=== PATIENT | male | born 1965 | race Caucasian/White ===

== ENCOUNTER → 2024-02-10 | Outpatient (CLI) | payer BC ==
--- NOTE | 2024-02-10 22:38 | MR ---
EXAMINATION TYPE: MR shoulder LT wo con DATE OF EXAM: 02/10/2024 6:01 PM COMPARISON: Outside left shoulder x-ray February 05, 2024 CLINICAL INDICATION: Male, 58 years old with history of M25.512 L SHOULDER PAIN, Left shoulder pain s estefania 01-30-24 due to fall and dislocating it TECHNIQUE: Multiplanar, multisequence imaging of the left shoulder is performed without contrast. FINDINGS: Rotator Cuff: Some increased signal in the infraspinatus tendon and muscle bulk. More prominent incre ased signal in the supraspinatus tendon with full-thickness retracted tear seen best coronal image 14 . Heterogeneous subscapularis tendon with surrounding fluid. Rotator cuff muscle bulk is preserved. Acromioclavicular Joint: Mild to moderate narrowing and spurring along with capsular hypertrophy. Glenohumeral Joint: Moderate size joint effusion. Narrowing is seen. No significant spurring. Labrum: The labrum appears grossly intact given limitation of non-arthrogram study. Biceps Tendon: The long head of biceps is dislocated anteromedially from the bicipital groove. Bone marrow signal: Increased T2 signal involving the inferior osseous glenoid coronal image 15 most prominent anteriorly in the lateral aspect of the humeral head. No bony Hill-Sachs deformity. Other: Ill-defined edema surrounds the proximal humerus. IMPRESSION: 1. Full-thickness retracted tear of the distal supraspinatus tendon. 2. Some tendinosis of infraspinatus and subscapularis tendons. 3. Subluxation or dislocation of the long head of biceps tendon. 4. Osseous contusion pattern consistent with anterior glenohumeral joint dislocation involving anteri or-inferior glenoid and lateral humeral head. 5. Moderate-sized joint effusion. [facility], , 02/10/2024 10:35 PM
== END | disposition home or self-care (01) ==
LOC: RADMRIMAIN 16:58
PROVIDERS: ATTEND Orthopaedic Surgery
DX: S46.012A Strain of muscle(s) and tendon(s) of the rotator cuff of left shoulder, initial encounter (principal); S43.005A Unspecified dislocation of left shoulder joint, initial encounter; M67.814 Other specified disorders of tendon, left shoulder; W19.XXXA Unspecified fall, initial encounter

== ENCOUNTER → 2024-03-11 | Outpatient (CLI) | payer BC ==
[2024-03-11 14:59] LABS: BUN/Creat Ratio 11.82 Ratio (12.00-20.00); Calcium 9.6 mg/dL (8.7-10.3); Carbon Dioxide 27.3 mmol/L (21.6-31.8); Chloride 104 mmol/L (96-109); Glucose 95 mg/dL (70-110); Potassium 4.3 mmol/L (3.5-5.5); Sodium 142 mmol/L (135-145)
[2024-03-11 15:00] LABS: Basophils # (A) 0.03 X 10*3/uL (0.00-0.10); Basophils % (A) 0.5 %; Eosinophils # (A) 0.17 X 10*3/uL (0.04-0.35); HGB 15.6 g/dL (13.0-17.0); Lymphocytes # (A) 1.55 X 10*3/uL (0.90-5.00); Lymphocytes % (A) 27.7 %; MCH 29.2 pg (27.0-32.0); MCHC 33.9 g/dL (32.0-37.0); Monocytes # (A) 0.44 X 10*3/uL (0.20-1.00); Monocytes % (A) 7.9 %; NRBC Per 100 WBC 0 X 10*3/uL (0.00-0.01); Neutrophils # (A) 3.39 X 10*3/uL (1.80-7.70); Neutrophils % (A) 60.7 %; Platelet Count 277 X 10*3/uL (140-440); RBC 5.35 X 10*6/uL (4.40-5.60); RDW 12.3 % (11.5-14.5); WBC 5.59 X 10*3/uL (4.50-10.00)
== END | disposition home or self-care (01) ==
LOC: LABPAT 11:12
PROVIDERS: ATTEND Orthopaedic Surgery
DX: Z01.818 Encounter for other preprocedural examination (principal); M75.42 Impingement syndrome of left shoulder
CPT/HCPCS: 36415; 80048; 85025; 93005

== ENCOUNTER 2024-04-02 05:50 | Day surgery (SDC) | payer BC ==
--- NOTE | 2024-04-01 11:19 | P.HPOR ---
History of Present Illness H&P Date: 04/01/24 Chief Complaint: Left shoulder pain and weakness Patient is a 59-year-old [id number] male who presents with left shoulder pain and weakness after an injury February 02, 2024. He slammed his shoulder into a wall and sustained a dislocation. He was able to relocate that himself. He notes anterior pain and weakness ever since. He denies previous problems. Initially he was treated in a sling. He takes pain medications as needed. Review of Systems Per HPI Past Medical History Past Medical History: Sleep Apnea/CPAP/BIPAP Additional Past Medical History / Comment(s): fell & dislocated Lt. shoulder 01/30/24, no sleep apnea since jaw surgery History of Any Multi-Drug Resistant Organisms: None Reported Additional Past Surgical History / Comment(s): Lt. collarbone lymph nodes removed, corrective jaw surgery 2018, colonoscopy Past Anesthesia/Blood Transfusion Reactions: No Reported Reaction Smoking Status: Never smoker - Past Family History Father Family Medical History: AFIB, Diabetes Mellitus, Sleep Apnea/CPAP/BIPAP Medications and Allergies Home Medications Medication Instructions Recorded Confirmed Type Acetaminophen Tab [Tylenol Tab] 1,000 mg PO Q6HR PRN 03/30/24 03/30/24 History Cholecalciferol [Vitamin D3 (25 25 mcg PO DAILY 03/30/24 03/30/24 History Mcg = 1000 Iu)] Ginkgo Biloba [place] Extract [Ginkgo 1 tab PO DAILY 03/30/24 03/30/24 History Biloba] L.acidoph,Paracasei, B.lactis 1 tab PO DAILY 03/30/24 03/30/24 History [Probiotic] Multivitamins, Thera [Multivitamin 1 tab PO DAILY 03/30/24 03/30/24 History (formulary)] [place]-3/Dha/Epa/Fish Oil [Fish Oil 1 tab PO DAILY 03/30/24 03/30/24 History 1,000 mg Softgel] Tumeric 1 tab PO DAILY 03/30/24 03/30/24 History Zinc Gluconate [Zinc] 50 mg PO DAILY 03/30/24 03/30/24 History tadalafiL [Cialis] 20 mg PO DAILY PRN 03/30/24 03/30/24 History Allergies Allergy/AdvReac Type Severity Reaction Status Date / Time No Known Allergies Allergy Verified 03/30/24 13:07 Physical Examination - Shoulder left Appearance: effusion Tenderness with palpation: anterior, bicipital groove Pain: with abduction, with forward flexion ROM: forward flexion: 60 degrees ROM: internal rotation: lower lumbar ROM: external rotation: 30 degrees Strength: abduction: 4/5 Strength: external rotation: 4/5 Tests: internal impingement tests: positive, external impingment tests: positive, anterior instability tests: positive Apprehension: anterior apprehension present: yes Results The patient is a well-developed well-nourished male approximately 5 foot 10, 194 pounds of mesomorphic habitus. HEENT exam is nonfocal, neck is supple. He is tender about the anterior left glenohumeral joint. Passively I am able to forward elevate him 80 degrees. Apprehension test with relocation test are positive. Motor strength 4+/5 for external rotation 4-/5 for abduction. His distal neurovascular appears intact in the left upper extremity. He is nontender about the left elbow and wrist. - Diagnostic results Shoulder MRI: image reviewed (MRI of the left shoulder shows evidence of a full- thickness tear involve the supraspinatus along with subluxation of the biceps and anterior glenoid and lateral humeral head edema. Impression left anterior glenohumeral dislocation with rotator cuff tear/biceps subluxationdislocation) Assessment and Plan Assessment: Left anterior glenohumeral dislocation/rotator cuff tear/biceps subluxationdislocation Plan: I talked to the patient at length regarding his condition along with treatment options. At this point he has significant pain and weakness after this acute injury. After a thorough discussion he opts to proceed with surgery. We will plan to proceed with left shoulder arthroscopy with probable subacromial decompression/rotator cuff repair/possible biceps tenotomy versus tenodesis/and possible labral repair. We would likely perform that as an outpatient procedure. Risks and benefits were discussed at length in layman's terms.
[2024-04-02] MEDS ORDERED: SCOPOLAMINE 1 MG/72 HR PATCH TRANSDERM ONE (06:14)
[2024-04-02] MEDS: LACTATED RINGERS 1,000 ML IV SCH (06:35)
[2024-04-02] MEDS: LIDOCAINE 1% (10MG/ML) FOR IV START INTRADERMA STA (06:35)
[2024-04-02] MEDS: IV FLUID CONTINUATION 1,000 ML IV ONE (06:35)
[2024-04-02 06:38] VITALS: TEMP 97
[2024-04-02] MEDS: ONDANSETRON 4 MG/2 ML VIAL IVP ONE (06:47)
[2024-04-02] MEDS: DEXAMETHASONE SOD PHOSPHATE 4 MG/ML 1 ML VIAL IV ONE (06:47)
[2024-04-02] MEDS: MIDAZOLAM 2 MG/2 ML VIAL IV PRN (07:00)
[2024-04-02] MEDS ORDERED: HYDROmorphone 0.5 MG/0.5 ML SYRINGE IVP PRN (07:00)
[2024-04-02] MEDS ORDERED: MIDAZOLAM 2 MG/2 ML VIAL ONE (07:25)
[2024-04-02] MEDS ORDERED: DEXAMETHASONE SOD PHOSPHATE 4 MG/ML 1 ML VIAL ONE (07:25)
[2024-04-02] MEDS ORDERED: ePHEDrine 50 MG/ML 1 ML VIAL ONE (07:25)
[2024-04-02] MEDS ORDERED: PHENYLEPHRINE 10 MG/ML VIAL ONE (07:25)
[2024-04-02] MEDS ORDERED: SUCCINYLCHOLINE CHLORIDE 200 MG/10 ML VIAL IV ONE (07:25)
[2024-04-02] MEDS ORDERED: LIDOCAINE 1% INJ 10MG/ML (20 ML MDV) ONE (07:25)
[2024-04-02] MEDS ORDERED: PROPOFOL 10 MG/ML 20 ML VIAL IV ONE (07:25)
[2024-04-02] MEDS ORDERED: ROPIVACAINE 5 MG/ML 30 ML VIAL ONE (07:25)
[2024-04-02] MEDS: EPINEPHrine (PF) 1 ML in SODIUM CHLORIDE 0.9% IRRIGATIO 3,000 ML IRRIGATION ONE ×4 (08:00)
[2024-04-02] MEDS: LACTATED RINGERS 1,000 ML IV ONE (09:12)
--- NOTE | 2024-04-02 09:29 | P.OP ---
Date of Procedure: 04/02/24 Preoperative Diagnosis: Left rotator cuff tear Postoperative Diagnosis: 3 cm rotator cuff tear involving the supraspinatus and infraspinatus Procedure(s) Performed: Left shoulder arthroscopic subacromial decompression/inferior labral debridement/rotator cuff repair Implants: Arthrex 4.75 mm swivel lock anchor x 1, 5.5 mm swivel lock anchor x 3 Anesthesia: ESTELITAA, janeth Surgeon: Adam Nicholson Program Manager #1: Johnny Roberson Estimated Blood Loss (ml): 10 Pathology: none sent Condition: stable Disposition: PACU Indications for Procedure: The patient is a 59-year-old male who presents with left shoulder pain and weakness after a previous injury in which he sustained a dislocation. Clinically and by MRI he was noted to have evidence of an acute rotator cuff tear. A discussion of the risks and benefits of operative intervention versus conservative measures was made with the patient. He opted to proceed with surgery. Operative risks include infection, neurovascular injury, development of blood clots, possible tendon rerupture, possible postoperative stiffness and need for subsequent procedures was discussed. Informed consent was obtained. Operative Findings: As below Description of Procedure: The patient was brought to the operating room, and after induction of general anesthesia was placed in a beachchair position. A preoperative interscalene block was placed for postoperative analgesia. I examined the left shoulder. There was no gross block to passive motion. The left upper extremity was prepped and draped in normal fashion. The bony outlines the acromion, distal clavicle, and coracoid process were outlined with a skin marker. The glenohumeral joint was inflated with 50 mL of saline utilizing a spinal needle from posterior approach. A posterior portal was made through a 5 mm skin incision 1 cm medial and inferior to the posterior lateral border time. A blunt trocar was used to easily into the joint. Diagnostic arthroscopy was performed. An anterior portal was made just lateral to the coracoid process entering the joint above the subscapularis tendon. The subscapularis tendon appeared to be intact. Anterior labrum was intact, however there was a tear involving the inferior labrum and a loose flap that was debrided back to a stable base with a motorized shaver the inferior recess was inspected. The posterior labrum was intact. The long head of the biceps and its anchor appear to be intact. On inspection the rotator cuff, a full-thickness tear involve the supraspinatus and a portion of the infraspinatus was noted with mild retraction. The arthroscope was placed into the subacromial space. A lateral portal was made 2 centimeters inferior to the anterior lateral border of the acromion. The rotator cuff was then mobilized with a traction suture. This was then easily brought back to the greater tuberosity. The soft tissue on the undersurface of the acromion was debrided with a motorized shaver and electrocautery clearly defining the anterior medial and lateral borders as well as the distal clavicle. An anterior inferior acromioplasty was performed with a motorized karen starting anterolateral, then extending this posteriorly, then extending this medially. I converted to a flat acromion and this was verified in the posterior and lateral viewing portals. The greater tuberosity was lightly decorticating with a shaver down to a bleeding bony surface. An accessory superior lateral portals made just off the lateral edge of the acromion for anchor placement. 2 anchors were then placed just off the articular surface with the appropriate starting awl. A 4.75 mm anchor preloaded with #2 fiber tape was placed anteriorly, and a 5.5 mm swivel lock anchor posteriorly. Good purchase was obtained. These fiber tapes were then passed the rotator cuff with a scorpion suture passer. A lateral row was created crisscrossing these tapes. 5.5 mm swivel lock anchors x 2 were placed laterally. Good purchase was obtained. Final arthroscopic view showed adequate compression at the footprint. The arthroscope was then removed. The portals were closed with simple 3-0 nylon sutures. A sterile dressing was roshan lied in addition to an abductor brace. The patient was then awoken from general anesthesia and transferred to recovery room in good condition. Blood loss was estimated at 10 mL. No complications were incurred. Sponge and needle counts were correct in the case. Johnny VALENTINE assisted and the major components of the case to include arm positioning, anchor placement, and rotator cuff repair.
--- NOTE | 2024-04-02 09:29 | P.ANPRN ---
Procedure Note - Anesthesia - Nerve Block Performed Left Interscalene Single Time Out Performed: Yes (0700) Date of Procedure: 04/02/24 Location of Patient: PreOp Indication: Acute Post-Operative Pain, Dx/Pain Location (left shoulder), Requested by Surgeon Specifically requested for management of pain by DrNavjot: Adam Nicholson Preparation: Sterile Prep Position: Supine Catheter: None Needle Types: Pajunk Needle Gauge: 18, 21 Ultrasound used to visualize needle placement: Yes Ultrasound used to observe medication spread: Yes Injectate: 0.5% Ropivacaine (see comment for volume) (30 cc + 4mg of decadron) Blood Aspirated: No Pain Paresthesia on Injection Noted: No Resistance on Injection: Normal Image Stored and Saved: Yes Events: Uneventful and Well Tolerated
[2024-04-02 10:19] VITALS: RESP 16
[2024-04-02 10:52] VITALS: BP 143/86; PULSE 83
== END 2024-04-02 12:11 | disposition home or self-care (01) ==
LOC: OR 05:50
PROVIDERS: ATTEND Orthopaedic Surgery
DX: S46.012A Strain of muscle(s) and tendon(s) of the rotator cuff of left shoulder, initial encounter (principal); G47.33 Obstructive sleep apnea (adult) (pediatric); Z83.3 Family history of diabetes mellitus; Z79.899 Other long term (current) drug therapy; X58.XXXA Exposure to other specified factors, initial encounter
CPT/HCPCS: 64415; 29827; C1713 ×4; C1894; J2250; J0330; J1100; J0690; J2405; J0171; J2003; J2795; J2704; J2371